=== PATIENT | female | born 2000 | race Two or more races ===

== ENCOUNTER 2022-10-28 21:34 | Inpatient (IN) | payer MEDICAID, OTHER ==
[~2022-10-28] VITALS: Ht 162.6 cm; Wt 80.4 kg
[2022-10-28] MEDS ORDERED: SERT-439 PO (21:45)
[2022-10-28 22:35] LABS: BASOPHILS % (AUTO) 0.8 % (0.0-2.0); EOSINOPHILS % (AUTO) 1.9 % (1.0-6.0); HEMATOCRIT 44.8 % (36-46); LYMPHOCYTES # (AUTO) 3.1 K/uL (1.0-4.8); LYMPHOCYTES % (AUTO) 22.6 % (22.0-44.0); MEAN CORPUSCULAR HGB CONC 33.5 G/dL (31.0-37.0); MEAN CORPUSCULAR VOLUME 86 fL (80-100); MONOCYTES % (AUTO) 7.4 % (2.0-9.0); NEUTROPHILS # (AUTO) 9.1 K/uL (1.8-7.7); NEUTROPHILS % (AUTO) 67.3 % (40.0-70.0); PLATELET COUNT (AUTO) 316 K/uL (150-450); RED BLOOD CELL COUNT(AUTO) 5.18 MIL/uL (4.00-5.20); RED CELL DISTRIBUTION WIDTH 13.6 % (11.5-14.5)
[2022-10-28 22:44] LABS: ANION GAP 8 mmol/L (8-16); CALCIUM, TOTAL 9.2 mg/dL (8.8-10.5); CARBON DIOXIDE 24 mmol/L (22-29); CHLORIDE 104 mmol/L (98-107); GLOMERULAR FILTR. RATE CALC > 60 mL/min (>60); GLUCOSE,RANDOM 110 mg/dL (70-110); POTASSIUM 3.6 mmol/L (3.5-5.1); SODIUM SERUM 136 mmol/L (136-145); UREA NITROGEN, BLOOD 12 mg/dL (7-18)
[2022-10-28 22:56] LABS: ALANINE AMINOTRANSFERASE 17 U/L (12-78); ALBUMIN 3.8 g/dL (3.4-5.0); ALKALINE PHOSPHATASE 151 U/L (46-116); ASPARTATE AMINOTRANSFERASE 14 U/L (15-37); BILIRUBIN,TOTAL 0.3 mg/dL (0.1-1.0); HCG,QUANTITATIVE < 1 mIU/mL (0-6)
[2022-10-28 23:56] LABS: COVID AG,FIA SOURCE NASOPHARYNGEAL
[2022-10-29] MEDS ORDERED: LORazepam 2 MG TABLET PO PRN (00:15)
[2022-10-29] MEDS ORDERED: HALOPERIDOL 5 MG TABLET PO PRN (00:15)
[2022-10-29] MEDS ORDERED: ZOLPIDEM TARTRATE 10 MG TABLET PO PRN (00:15)
[2022-10-29 02:09] VITALS: BP 130/75
[2022-10-29] MEDS ORDERED: INFLUENZA VIRUS VACCINE QVS 2022-23 (6MO+)/PF 60 MCG/0.5 ML SYRINGE IM. ONE (03:45)
[2022-10-29] MEDS ORDERED: PNEUMOCOCCAL VACCINE POLYVALENT 0.5 ML VIAL [PPSV23] IM. ONE (03:45)
[2022-10-29 08:00] VITALS: BP 128/78
[2022-10-29 09:42] LABS: APPEARANCE,URINE CLEAR (CLEAR); BILIRUBIN,URINE NEGATIVE (NEGATIVE); GLUCOSE, URINE (UA) NEGATIVE (NEGATIVE); KETONES,URINE TRACE mg/dL (NEGATIVE); LEUKOCYTE ESTERASE ,URINE NEGATIVE (NEGATIVE); NITRATE,URINE NEGATIVE (NEGATIVE); OCCULT BLOOD,URINE NEGATIVE (NEGATIVE); PROTEIN,URINE TRACE mg/dL (NEGATIVE); SPECIFIC GRAVITIY, URINE 1.028 (1.003-1.030); UROBILINOGEN,URINE <=1.0 mg/dL (<=1.0)
[2022-10-29 09:49] LABS: AMPHET/METH SCREEN,URINE NEGATIVE (NEGATIVE); BARBITURATE SCREEN, URINE NEGATIVE (NEGATIVE); BENZODIAZEPINES SCREEN,URINE NEGATIVE (NEGATIVE); CANNABINOID SCREEN,URINE NEGATIVE (NEGATIVE); COCAINE SCREEN,URINE NEGATIVE (NEGATIVE); METHADONE SCREEN, URINE NEGATIVE (NEGATIVE); OPIATE SCREEN,URINE NEGATIVE (NEGATIVE)
[2022-10-29 09:51] LABS: PHENCYCLIDINE SCREEN,URINE NEGATIVE (NEGATIVE)
[2022-10-29] MEDS ORDERED: NORG1TAB75 PO (11:24)
[2022-10-29] MEDS: SERTRALINE HCL 50 MG TABLET PO SCH (13:02)
[2022-10-29 16:02] VITALS: BP 117/73
[2022-10-29 21:13] VITALS: BP 114/77
[2022-10-30 08:21] VITALS: BP 136/77
[2022-10-30] MEDS: SERTRALINE HCL 50 MG TABLET PO SCH (09:34)
[2022-10-30 16:05] VITALS: BP 95/59
[2022-10-31 08:00] VITALS: BP 118/82
[2022-10-31] MEDS: SERTRALINE HCL 50 MG TABLET PO SCH (09:52)
[2022-10-31] MEDS ORDERED: SERT-439 PO (14:26)
== END 2022-10-31 19:42 | disposition home or self-care (01) | DRG 751 ==
LOC: EMS 21:36 → 3EI 10-29 00:11
PROVIDERS: ADMIT Psychiatry & Neurology Child & Adolescent Psychiatry; ATTEND Psychiatry & Neurology Child & Adolescent Psychiatry
DX: F33.2 Major depressive disorder, recurrent severe without psychotic features (principal); R45.851 Suicidal ideations; E66.9 Obesity, unspecified; Z20.822 Contact with and (suspected) exposure to COVID-19; Z68.30 Body mass index [BMI] 30.0-30.9, adult; F84.0 Autistic disorder; J45.909 Unspecified asthma, uncomplicated; K29.70 Gastritis, unspecified, without bleeding; D72.829 Elevated white blood cell count, unspecified
CPT/HCPCS: 80053; 80307; 81003; 84702; 85025; 99285; G0480